=== PATIENT | female | born 1990 | race Caucasian/White ===

== ENCOUNTER → 2020-10-06 | Outpatient (CLI) | payer OTHER | LOC: RAD 10:50 | DX: E04.1 Nontoxic single thyroid nodule (principal) ==

== ENCOUNTER → 2021-11-24 | Outpatient (CLI) | payer OTHER | LOC: RAD 09:00 | DX: R22.0 Localized swelling, mass and lump, head (principal) ==

== ENCOUNTER → 2023-09-29 | Outpatient (CLI) | payer OTHER | LOC: RAD 13:08 | DX: I65.29 Occlusion and stenosis of unspecified carotid artery (principal); Z82.49 Family history of ischemic heart disease and other diseases of the circulatory system ==

== ENCOUNTER → 2023-10-28 | Outpatient (CLI) | payer OTHER | LOC: RAD 09:33 | DX: K76.0 Fatty (change of) liver, not elsewhere classified (principal) ==